=== PATIENT | female | born 1990 | race Two or more races ===

== ENCOUNTER 2023-03-06 10:41 | Outpatient (CLI) | payer OTHER | END 2023-03-06 10:59 | disposition home or self-care (01) | LOC: RAD 10:41 | PROVIDERS: ATTEND Physical Medicine & Rehabilitation | DX: M54.2 Cervicalgia (principal); M54.6 Pain in thoracic spine; M54.59 Other low back pain ==

== ENCOUNTER 2023-05-26 15:37 | Emergency (ER) | payer OTHER ==
[~2023-05-26] VITALS: Ht 165.1 cm; Wt 56.7 kg
[2023-05-26] MEDS ORDERED: PEPCID AC20 MG PO (19:32)
[2023-05-26] MEDS ORDERED: ONDANSETRON ODT8 MG PO (19:32)
== END 2023-05-26 21:16 | disposition home or self-care (01) ==
LOC: ER 15:37
DX: K52.9 Noninfective gastroenteritis and colitis, unspecified (principal); R11.2 Nausea with vomiting, unspecified